=== PATIENT | female | born 1995 | race Two or more races ===

== ENCOUNTER 2025-03-20 22:38 | Emergency (ER) | payer OTHER, MEDICAID ==
[~2025-03-20] VITALS: Ht 160 cm; Wt 75.0 kg
[2025-03-20 22:45] VITALS: BP 108/61; PULSE 95; RESP 18; TEMP 98.5; O2SAT 96
--- NOTE | 2025-03-21 01:05 | ED.PDOC ---
MOBILE ARCHITECT HPI Comments PATIENT STATES SHE DEVELOPED A BARTHOLIN CYST 2 1/2 WEEKS AGO. STATES SHE WAS SE EN AT [place] ON THE , THEY ATTEMPTED TO DRAIN IT WITHOUT SUCCESS. STATES SHE HAS SUTURES IN PLACE. C/O INCREASED SWELLING, PAIN. PT HAS BEEN TAKING KEFLEX SINCE THE . PT IS 4 MONTHS . BLEEDING, SPOTTING, ABDOMINAL CRAMPING, NAUSEA, VOMITING, DIARRHEA. Chief Complaint: Abscess Time Seen by MD: 23:05 Reviewed Notes: Nurses Notes, Medications, Allergies Allergies: Coded Allergies: NO KNOWN ALLERGIES (Unverified , 03/20/25) Information Source: Patient Past Medical History PAST MEDICAL HISTORY: Denies Surgical History: Denies all surgeries CLINICAL RESEARCH TECHNICIAN History: No Pertinent CLINICAL RESEARCH TECHNICIAN History Social History Smoker: Non-Smoker Alcohol: Denies ETOH Use Drugs: Denies Drug Use Constitutional: denies: chills, diaphoresis, fatigue, fever, malaise, sweats, weakness, others EENTM: denies: blurred vision, double vision, ear bleeding, ear discharge, ear drainage, ear pain, ear ringing, eye pain, eye redness, hearing loss, mouth pain, mouth swelling, nasal discharge, nose bleeding, nose congestion, nose pain, photophobia, tearing, throat pain, throat swelling, voice changes, others Respiratory: denies: cough, hemoptysis, orthopnea, SOB at rest, shortness of breath, SOB with excertion, stridor, wheezing, others Cardiovascular: denies: chest pain, dizzy spells, diaphoresis, Dyspnea on exertion, edema, irregular heart beat, left arm pain, lightheadedness, palpitations, PND, syncope, others Gastrointestinal: denies: abdomen distended, abdominal pain, blood streaked bowels, constipated, diarrhea, dysphagia, difficulty swallowing, hematemesis, melena, nausea, poor appetite, poor fluid intake, rectal bleeding, rectal pain, vomiting, others Genitourinary: reports: others (ABSCESS); denies: abnormal vagina bleeding, burning, dyspareunia, dysuria, flank pain, frequency, hematuria, incontinence, pain, , vagina discharge, urgency Neurological: denies: dizziness, fainting, headache, left sided numbness, left sided weakness, numbness, paresthesia, pre-existing deficit, right sided numbness, right sided weakness, seizure, speech problems, tingling, tremors, weakness, others Musculoskeletal: denies: back pain, gout, joint pain, joint swelling, muscle pain, muscle stiffness, neck pain, others Integumetry: denies: bruises, change in color, change in hair/nails, dryness, laceration, lesions, lumps, rash, wounds, others Allergic/Immunocompromised: denies: Difficulty Healing, Frequent Infections, Hives, Itching, others Hematologic/Lymphatic: denies: anemia, blood clots, easy bleeding, easy bruising, swollen glands, others Endocrine: denies: excessive hunger, excessive sweating, excessive thirst, excessive urination, flushing, intolerance to cold, intolerance to heat, unexplained weight gain, unexplained weight loss, others Psychiatric: denies: anxiety, bipolar disorder, depression, hopeless, panic disorder, schizophrenia, sleepless, suicidal, others Physical Exam General Appearance: No Apparent Distress, Normal HEENT: Pharynx Normal Neck: Full Range of Motion, Normal Respiratory: Lungs Clear, No Respiratory Distress, Normal Breath Sounds Cardiovascular: No Murmur, Normal Peripheral Pulses, Regular Rate/Rhythm Breast Exam: Deferred Gastrointestinal: No Organomegaly, Non Tender, No Pulsatile Mass, Normal Bowel Sounds, Soft Genitalia: Deferred (REFUSED) Pelvic: Deferred Rectal: Deferred Extremities: Normal capillary refill, Normal inspection, Normal range of motion, Non-tender, No pedal edema Musculoskeletal : Apperance: Normal Neurologic: Alert, baker pie II-XII nml as Tested, No Motor Deficits, Normal Affect, Normal Mood, No Sensory Deficits Cerebellar Function: Normal Reflexes: Normal Skin: Dry, Normal Color, Warm Lymphatic: No Adenopathy Was a procedure done? Was a procedure done?: No Differential Diagnosis (CLINICAL RESEARCH TECHNICIAN) Mass / Lesion: Bartholin Abscess, Bartholin Cyst, Hidradenitis Suppurativa, Perianal Abscess X-Ray, Labs, Meds, VS Vital Signs Date Time Temp Pulse Resp B/P (MAP) Pulse Ox O2 Delivery O2 Flow Rate FiO2 03/20/25 22:45 98.5 95 18 108/61 (77) 96 98.5 03/20/25 22:45 Room Air 03/20/25 22:45 98.5 95 18 108/61 (77) 96 98.5 X-Ray, Labs, Meds, VS Comment HE REFUSED TO HAVE ABSCESS DRAINED. RECENTLY ABOUT 3 DAYS AGO HAD IT DRAINED BY HER OBGYN AND THEY STATED THAT IT WAS TOO DEEP OF A POCKET AND THEY SAID TRY ANTIBIOTICS WHICH SHE WAS PRESCRIBED KEFLEX SHE HAS BEEN TAKING THEM SHE NOTES NO IMPROVEMENT. PATIENT STATES SHE WANTS TO HAVE IT DONE BY HER OB UNDER ANESTHESIA SHE IS CURRENTLY 6 MONTHS . HE REFUSED TO TRIAL LET FOR NUMBING STATES IT IS TOO DEEP TO DRAIN. ADVISED TO CALL HER OBGYN IN THE MORNING AND SCHEDULE AN APPOINTMENT OBGYN IS INSTRUCTIONS NO SITZ BATHS. CONTINUE WITH WARM COMPRESSES AND CONTINUE WITH THE ANTIBIOTIC. ER RETURN PRECAUTIONS GIVEN PATIENT INDICATED UNDERSTANDING Time of 1ST Reevaluation: 01:24 Reevaluation 1ST: Unchanged Patient Education/Counseling: Diagnosis, Treatment, Prognosis, Need For Follow Up Family Education/Counseling: No Family Present Departure 1 Departure Time of Disposition: :24 Impression: Primary Impression: Bartholin's gland abscess Disposition: 01 HOME / SELF CARE / HOMELESS Condition: Stable Discharged With: Self Critical Care Note Critical Care Time?: No Stability Stability form required: ANITA Jerez Mar 21, 2025 01:05
== END 2025-03-21 01:26 | disposition home or self-care (01) ==
LOC: ER 22:38
DX: N75.1 Abscess of Bartholin's gland (principal)